=== PATIENT | female | born 1980 | race Caucasian/White ===

== ENCOUNTER 2021-02-02 10:58 | Inpatient (IN) | payer MEDICAID ==
[~2021-02-02] VITALS: Ht 165.1 cm; Wt 106.2 kg
[2021-02-02 12:11] LABS: Eosinophils # (auto) 0.1 10 ^3/uL (0-0.8); Lymphocytes # (auto) 1.4 10 ^3/uL (0.4-5.4); White Blood Cell 6.1 10^3/uL (4.4-10.8)
[2021-02-02 12:13] LABS: Basophils # (auto) 0 10 ^3/uL (0-0.2); Basophils % (auto) 0.6 % (0.0-2.0); Eosinophils % (auto) 1.5 % (0.0-7.0); Hematocrit 23.2 % (36.0-46.0); Hemoglobin 7.6 g/dL (12.2-16.2); Lymphocytes % (auto) 23.7 % (10.0-50.0); Mean Corpuscular Hemoglobin 30.8 pg (28.0-32.0); Mean Corpuscular Hgb Conc. 32.6 g/dL (32.0-36.0); Mean Corpuscular Volume 94.5 fL (80.0-100.0); Monocytes # (auto) 0.4 10 ^3/uL (0-1.3); Monocytes % (auto) 6.1 % (0.0-12.0); Neutrophils # (auto) 4.1 10 ^3/uL (1.6-8.6); Neutrophils % (auto) 68.1 % (37.0-80.0); Nucleated Red Blood Cells % 0.3 %; Red Blood Cells 2.45 10^6/uL (4.0-5.20); Red Cell Distribution Width 25.6 % (11.8-14.3)
[2021-02-02 12:22] LABS: Urine Bacteria FEW /hpf (None Seen); Urine Blood Negative /uL (Negative); Urine Hyaline Cast FEW /lpf (0 - 2); Urine Mucus FEW (None Seen); Urine Specific Gravity 1.015 (1.001-1.035); Urine WBC 5 /hpf (0 - 5)
[2021-02-02 12:25] LABS: Albumin 2.8 g/dL (3.4-5.0); Anion Gap 8 (5-15); Blood Urea Nitrogen 10 mg/dL (7-18); Carbon Dioxide 22 mmol/L (21-32); Chloride 113 mmol/L (98-107); Glucose 91 mg/dL (74-106); Magnesium 2.1 mg/dL (1.6-2.6); Potassium 3.2 mmol/L (3.5-5.1); Sodium 143 mmol/L (136-145)
[2021-02-02 12:31] LABS: INR 1.26 (0.9-1.15); Partial Thromboplastin Time 26.2 sec (23.0-31.2)
[2021-02-02 12:32] LABS: Alanine Aminotransferase 32 U/L (13-56); Alkaline Phosphatase 91 U/L (45-117); Aspartate Aminotransferase 67 U/L (15-37); GFR African American 176 mL/min; GFR Non-African American 145 mL/min; Total Protein 6.2 g/dL (6.4-8.2)
[2021-02-02] MEDS ORDERED: ONDANSETRON HCL 4 MG/2 ML VIAL IV PRN ×2 (13:00→21:45)
[2021-02-02] MEDS ORDERED: MORPHINE SULF INJ 2 MG/ML SYRINGE 1ML IV PRN ×3 (13:00→21:45)
[2021-02-02] MEDS ORDERED: NITROGLYCERIN 0.4 MG SL TAB SL PRN ×2 (13:00→21:45)
[2021-02-02] MEDS ORDERED: SODIUM CHLORIDE 0.9% 1,000 ML IV SCH (13:00)
[2021-02-02] MEDS ORDERED: ARIP1TAB7 PO (16:50)
[2021-02-02 16:55] VITALS: BP 135/76
[2021-02-02 16:57] VITALS: BP 117/63
[2021-02-02] MEDS ORDERED: POTASSIUM CHL 20 Meq TABLET PO ONE ×2 (19:30→22:00)
[2021-02-02 20:00] VITALS: BP 105/63
[2021-02-02] MEDS: SODIUM CHLORIDE 0.9% 1,000 ML IV SCH (21:45)
[2021-02-02] MEDS: PANTOPRAZOLE 40 MG/10 ML VIAL INJ IV SCH (21:50)
[2021-02-02] MEDS ORDERED: PANTOPRAZOLE 40 MG/10 ML VIAL INJ IV SCH (22:00)
[2021-02-03 05:00] VITALS: BP 107/63
[2021-02-03] MEDS: MORPHINE SULF INJ 2 MG/ML SYRINGE 1ML IV PRN ×2 (06:17→23:14)
[2021-02-03 08:59] VITALS: BP 130/66
[2021-02-03] MEDS: PANTOPRAZOLE 40 MG/10 ML VIAL INJ IV SCH (09:37)
[2021-02-03] MEDS: SODIUM CHLORIDE 0.9% 1,000 ML IV SCH (11:05)
[2021-02-03 12:43] VITALS: BP 122/75
[2021-02-03] MEDS: FUROSEMIDE 40 MG/4 ML VIAL IV SCH (15:40)
[2021-02-03] MEDS: SPIRONOLACTONE 25 MG TAB PO SCH (15:40)
[2021-02-03 17:01] VITALS: BP 122/70
[2021-02-03 18:59] LABS: Basophils # (auto) 0 10 ^3/uL (0-0.2); Basophils % (auto) 0.4 % (0.0-2.0); Eosinophils # (auto) 0.1 10 ^3/uL (0-0.8); Eosinophils % (auto) 1.8 % (0.0-7.0); Hematocrit 22.4 % (36.0-46.0); Hemoglobin 7.4 g/dL (12.2-16.2); Lymphocytes # (auto) 1.5 10 ^3/uL (0.4-5.4); Lymphocytes % (auto) 30.5 % (10.0-50.0); Mean Corpuscular Hemoglobin 30.7 pg (28.0-32.0); Mean Corpuscular Hgb Conc. 33.2 g/dL (32.0-36.0); Mean Corpuscular Volume 92.6 fL (80.0-100.0); Monocytes # (auto) 0.3 10 ^3/uL (0-1.3); Monocytes % (auto) 6.2 % (0.0-12.0); Neutrophils # (auto) 3.1 10 ^3/uL (1.6-8.6); Neutrophils % (auto) 61.1 % (37.0-80.0); Nucleated Red Blood Cells % 0.1 %; Red Blood Cells 2.42 10^6/uL (4.0-5.20)
[2021-02-03 19:00] LABS: Red Cell Distribution Width 22.8 % (11.8-14.3)
[2021-02-03 19:21] LABS: Albumin 2.8 g/dL (3.4-5.0); Calcium 8.2 mg/dL (8.5-10.1); Potassium 3.2 mmol/L (3.5-5.1)
[2021-02-03 19:27] LABS: Bilirubin, Total 4.5 mg/dL (0.2-1.0); Total Protein 6.2 g/dL (6.4-8.2)
[2021-02-03 20:00] VITALS: BP 122/75
[2021-02-03 22:00] VITALS: BP 107/55
[2021-02-04 05:57] LABS: Basophils # (auto) 0 10 ^3/uL (0-0.2); Basophils % (auto) 0.6 % (0.0-2.0); Eosinophils # (auto) 0.1 10 ^3/uL (0-0.8); Lymphocytes # (auto) 1.3 10 ^3/uL (0.4-5.4); Monocytes # (auto) 0.3 10 ^3/uL (0-1.3); Neutrophils # (auto) 2.5 10 ^3/uL (1.6-8.6)
[2021-02-04 05:59] LABS: Eosinophils % (auto) 2.7 % (0.0-7.0); Hematocrit 21.3 % (36.0-46.0); Hemoglobin 7.4 g/dL (12.2-16.2); Lymphocytes % (auto) 30.3 % (10.0-50.0); Mean Corpuscular Hemoglobin 32.4 pg (28.0-32.0); Mean Corpuscular Hgb Conc. 34.8 g/dL (32.0-36.0); Monocytes % (auto) 7.2 % (0.0-12.0); Neutrophils % (auto) 59.2 % (37.0-80.0); Nucleated Red Blood Cells % 0.2 %; Red Blood Cells 2.29 10^6/uL (4.0-5.20); White Blood Cell 4.2 10^3/uL (4.4-10.8)
[2021-02-04 06:10] LABS: Red Cell Distribution Width 21.6 % (11.8-14.3)
[2021-02-04 06:20] LABS: Potassium 3.6 mmol/L (3.5-5.1)
[2021-02-04 06:29] LABS: Albumin 2.7 g/dL (3.4-5.0); BUN/Creatinine Ratio 16.3; Bilirubin, Total 3.9 mg/dL (0.2-1.0); Calcium 7.8 mg/dL (8.5-10.1); Magnesium 1.8 mg/dL (1.6-2.6)
[2021-02-04] MEDS: FUROSEMIDE 40 MG/4 ML VIAL IV SCH (08:18)
[2021-02-04] MEDS: SPIRONOLACTONE 25 MG TAB PO SCH (08:19)
[2021-02-04 09:16] VITALS: BP 126/57
[2021-02-04 12:53] VITALS: BP 126/57
[2021-02-04 13:27] VITALS: BP 111/56
== END 2021-02-04 15:01 | disposition home or self-care (01) | DRG 280 ==
LOC: ER 10:58 → CENTRAL 12:57 → ER 15:55 → TELE-CENTR 18:09
PROVIDERS: ADMIT Internal Medicine; ATTEND Internal Medicine
DX: K70.30 Alcoholic cirrhosis of liver without ascites (principal); E44.0 Moderate protein-calorie malnutrition; E87.70 Fluid overload, unspecified; Z20.822 Contact with and (suspected) exposure to COVID-19; D63.8 Anemia in other chronic diseases classified elsewhere; F10.20 Alcohol dependence, uncomplicated; I10 Essential (primary) hypertension; Y90.9 Presence of alcohol in blood, level not specified; Z79.899 Other long term (current) drug therapy; Z71.41 Alcohol abuse counseling and surveillance of alcoholic; Z98.51 Tubal ligation status; Z88.0 Allergy status to penicillin; R74.01 Elevation of levels of liver transaminase levels
CPT/HCPCS: 36415; 71045; 74176; 80053; 81001; 83735; 84484; 85025; 85610; 85730; 86850; 86900; 86901; 87081; 87426; 93005; 96374; C9113; G0378

== ENCOUNTER 2022-08-09 12:16 | Emergency (ER) | payer MEDICAID ==
[~2022-08-09] VITALS: Ht 167.6 cm; Wt 95.0 kg
[~2022-08-09 12:16] MED LIST: ARIP1TAB7 PO
[2022-08-09 13:34] VITALS: BP 163/101
[2022-08-09] MEDS ORDERED: LIDOCAINE 1% HCL (LOCAL ANESTH.) INJ 20ML MDV IJ ONE (14:00)
[2022-08-09] MEDS ORDERED: TETANUS-DIPTH-ACEL PERTUSSIS 0.5ML SYR Tdap IM ONE (14:00)
[2022-08-09] MEDS ORDERED: CLIN300C8 PO (14:13)
[2022-08-09] MEDS ORDERED: NAPR500T31 PO (14:13)
[2022-08-09] MEDS ORDERED: cefTRIAXone SOD 1,000 MG VL IM ONE (14:15)
== END 2022-08-09 14:26 | disposition home or self-care (01) ==
LOC: ER 12:16
DX: S61.412A Laceration without foreign body of left hand, initial encounter (principal); I10 Essential (primary) hypertension; Z88.0 Allergy status to penicillin; W55.01XA Bitten by cat, initial encounter; Y93.89 Activity, other specified; Y92.89 Other specified places as the place of occurrence of the external cause; Y99.8 Other external cause status
CPT/HCPCS: 12002; 90471; 90715; 99283; J0696; J2001

== ENCOUNTER 2023-06-23 19:19 | Inpatient (IN) | payer MEDICAID ==
[~2023-06-23] VITALS: Ht 167.6 cm; Wt 75.5 kg
[~2023-06-23 19:19] MED LIST changes: +CLIN300C70 PO; +NAPR-746 PO
[2023-06-23 20:08] LABS: Basophils # (auto) 0 10 ^3/uL (0-0.2); Nucleated Red Blood Cells % 0.4 %; White Blood Cell 7.3 10^3/uL (4.4-10.8)
[2023-06-23 20:10] LABS: Basophils % (auto) 0.3 % (0.0-2.0); Eosinophils # (auto) 0.1 10 ^3/uL (0-0.8); Eosinophils % (auto) 0.8 % (0.0-7.0); Hematocrit 37.7 % (36.0-46.0); Hemoglobin 11.9 g/dL (12.2-16.2); Lymphocytes # (auto) 2.2 10 ^3/uL (0.4-5.4); Lymphocytes % (auto) 29.5 % (10.0-50.0); Mean Corpuscular Hemoglobin 24.9 pg (28.0-32.0); Mean Corpuscular Hgb Conc. 31.7 g/dL (32.0-36.0); Mean Corpuscular Volume 78.5 fL (80.0-100.0); Monocytes # (auto) 0.4 10 ^3/uL (0-1.3); Monocytes % (auto) 5.9 % (0.0-12.0); Neutrophils # (auto) 4.7 10 ^3/uL (1.6-8.6); Neutrophils % (auto) 63.5 % (37.0-80.0)
[2023-06-23 20:23] LABS: INR 1.42 (0.9-1.15); Partial Thromboplastin Time 29.8 SEC (24.5-34.5); Prothrombin Time 14.6 sec (9.3-11.8)
[2023-06-23 20:40] LABS: Alanine Aminotransferase 55 U/L (7-40); Albumin 4.1 g/dL (3.2-4.8); Alkaline Phosphatase 115 U/L (46-116); Anion Gap 12 (5-15); Aspartate Aminotransferase 110 U/L (13-40); Bilirubin, Total 5.1 mg/dL (0.2-1.0); Calcium 8.6 mg/dL (8.7-10.4); Carbon Dioxide 27 mmol/L (20-30); Chloride 95 mmol/L (98-107); Glucose 300 mg/dL (74-106); Sodium 134 mmol/L (136-145); Total Protein 6.8 g/dL (5.7-8.2)
[2023-06-23 20:53] LABS: Platelet Estimate Decreased
[2023-06-23 20:59] LABS: BUN/Creatinine Ratio 10.4 (10.0-20.0); Blood Urea Nitrogen < 5 mg/dL (9-23)
[2023-06-23 21:00] LABS: Potassium 2.4 mmol/L (3.5-5.1)
[2023-06-23] MEDS ORDERED: POTASSIUM CHL 20MEQ/100ML 100 ML IV ONE (21:30)
[2023-06-23] MEDS ORDERED: POTASSIUM CHL 20 Meq TABLET PO ONE (21:30)
[2023-06-23] MEDS ORDERED: SODIUM CHLORIDE 0.9% 1,000 ML IV SCH (21:45)
[2023-06-23] MEDS ORDERED: MORPHINE SULFATE INJ 2 MG/ml SYRG IV PRN (21:45)
[2023-06-23] MEDS ORDERED: NITROGLYCERIN 0.4 MG SL TAB SL PRN (21:45)
[2023-06-23 22:17] LABS: Urine Bacteria NONE SEEN /hpf (None Seen); Urine Blood TRACE /uL (Negative); Urine Clarity Clear (Clear); Urine Color Yellow (Yellow); Urine Mucus FEW (None Seen); Urine Protein, UAD Negative (Negative); Urine Specific Gravity 1.021 (1.001-1.035); Urine Urobilinogen Normal (Negative); Urine WBC 2 /hpf (0 - 5); Urine pH 7.5 (5.0-8.0)
[2023-06-24 00:15] VITALS: PULSE 100; RESP 15; O2SAT 96
[2023-06-24] MEDS: PANTOPRAZOLE 40 MG/10 ML VIAL INJ IV SCH ×3 (01:17→20:34)
[2023-06-24 05:42] LABS: Alanine Aminotransferase 46 U/L (7-40); Albumin 3.5 g/dL (3.2-4.8); Alkaline Phosphatase 98 U/L (46-116); Anion Gap 10 (5-15); Aspartate Aminotransferase 95 U/L (13-40); Bilirubin, Total 5.7 mg/dL (0.2-1.0); Calcium 8.1 mg/dL (8.7-10.4); Carbon Dioxide 28 mmol/L (20-30); Chloride 97 mmol/L (98-107); Glucose 217 mg/dL (74-106); Potassium 2.7 mmol/L (3.5-5.1); Sodium 135 mmol/L (136-145); Total Protein 5.9 g/dL (5.7-8.2)
[2023-06-24 05:46] LABS: Basophils # (auto) 0 10 ^3/uL (0-0.2); Basophils % (auto) 0.8 % (0.0-2.0); Eosinophils # (auto) 0 10 ^3/uL (0-0.8); Eosinophils % (auto) 0.7 % (0.0-7.0); Hematocrit 33.2 % (36.0-46.0); Hemoglobin 10.7 g/dL (12.2-16.2); Lymphocytes # (auto) 1.6 10 ^3/uL (0.4-5.4); Lymphocytes % (auto) 31.3 % (10.0-50.0); Mean Corpuscular Hgb Conc. 32.3 g/dL (32.0-36.0); Mean Corpuscular Volume 77.4 fL (80.0-100.0); Monocytes # (auto) 0.3 10 ^3/uL (0-1.3); Monocytes % (auto) 5.2 % (0.0-12.0); Neutrophils # (auto) 3.2 10 ^3/uL (1.6-8.6); Nucleated Red Blood Cells % 0.4 %; Red Blood Cells 4.29 10^6/uL (4.0-5.20); Red Cell Distribution Width 16.1 % (11.8-14.3); White Blood Cell 5.1 10^3/uL (4.4-10.8)
[2023-06-24 05:48] LABS: BUN/Creatinine Ratio 14.7 (10.0-20.0); Blood Urea Nitrogen < 5 mg/dL (9-23)
[2023-06-24 08:00] VITALS: PULSE 95; RESP 15; O2SAT 97
[2023-06-24 08:45] LABS: Anisocytosis Slight; Hypochromia Slight; Polychromasia Slight
[2023-06-24 08:46] LABS: Platelet Estimate Decreased; Target Cell FEW; Tear Drop Cells FEW
[2023-06-24] MEDS ORDERED: DEXTROSE (50%) 50ML SYRG IV PRN (11:00)
[2023-06-24] MEDS: SOD CHL 0.9%/ KCL 20MEQ 1,000 ML IV SCH (11:07)
[2023-06-24] MEDS: ONDANSETRON HCL 4 MG/2 ML VIAL IV PRN ×2 (11:14→20:11)
[2023-06-24] MEDS: MORPHINE SULFATE INJ 2 MG/ml SYRG IV PRN ×3 (11:15→22:45)
[2023-06-24 11:28] LABS: Amphetamine Screen, Urine Neg (NEGATIVE); Barbiturate Scree,Urine Neg (NEGATIVE); Benzodiazephine Screen, Urine Neg (NEGATIVE); Cocaine Screen, Urine Neg (NEGATIVE); Opiate Scree,Urine Pos (NEGATIVE)
[2023-06-24 11:29] LABS: Cannabinoid Screen, Urine Pos (NEGATIVE); Phencyclidine Screen, Urine Neg (NEGATIVE)
[2023-06-24] MEDS: ACCU-CHEK COMFORT CURVE STRIP VI SCH ×2 (12:22→18:03)
[2023-06-24] MEDS: InsuLIN REG 1unit/0.01ml Soln (100units/ml) SC SCH ×3 (12:23→22:43)
[2023-06-24 14:40] LABS: Hepatitis B Core Total AB Negative (Negative)
[2023-06-24 15:51] LABS: Hepatitis A Total Antibody Positive (Negative); Hepatitis B Surface Antibody Negative (Negative); Hepatitis B Surface Antigen Negative (Negative); Hepatitis C Antibody Negative (Negative)
[2023-06-24 19:30] VITALS: PULSE 91; RESP 18; O2SAT 98
[2023-06-24 20:00] VITALS: PULSE 81; RESP 18
[2023-06-24 22:00] VITALS: BP 114/70; PULSE 71; RESP 16; TEMP 98.2; O2SAT 95
[2023-06-25] MEDS: SOD CHL 0.9%/ KCL 20MEQ 1,000 ML IV SCH ×2 (00:20→13:40)
[2023-06-25 05:00] VITALS: BP 110/72; PULSE 85; RESP 16; TEMP 97.9; O2SAT 96
[2023-06-25] MEDS: MORPHINE SULFATE INJ 2 MG/ml SYRG IV PRN ×2 (05:07→09:18)
[2023-06-25] MEDS: ACCU-CHEK COMFORT CURVE STRIP VI SCH ×3 (05:15→12:37)
[2023-06-25] MEDS: InsuLIN REG 1unit/0.01ml Soln (100units/ml) SC SCH ×2 (05:20→12:38)
[2023-06-25 06:12] LABS: Basophils # (auto) 0 10 ^3/uL (0-0.2); Eosinophils # (auto) 0.1 10 ^3/uL (0-0.8); Monocytes # (auto) 0.3 10 ^3/uL (0-1.3); White Blood Cell 4.5 10^3/uL (4.4-10.8)
[2023-06-25 06:15] LABS: Basophils % (auto) 0.7 % (0.0-2.0); Eosinophils % (auto) 1.3 % (0.0-7.0); Hematocrit 30.8 % (36.0-46.0); Lymphocytes # (auto) 1.3 10 ^3/uL (0.4-5.4); Lymphocytes % (auto) 28.8 % (10.0-50.0); Mean Corpuscular Hemoglobin 25.5 pg (28.0-32.0); Mean Corpuscular Hgb Conc. 32.6 g/dL (32.0-36.0); Mean Corpuscular Volume 78.2 fL (80.0-100.0); Monocytes % (auto) 5.9 % (0.0-12.0); Neutrophils # (auto) 2.8 10 ^3/uL (1.6-8.6); Neutrophils % (auto) 63.3 % (37.0-80.0); Nucleated Red Blood Cells % 0.4 %; Red Blood Cells 3.94 10^6/uL (4.0-5.20); Red Cell Distribution Width 15.7 % (11.8-14.3)
[2023-06-25 06:20] LABS: INR 1.58 (0.9-1.15); Prothrombin Time 16.1 sec (9.3-11.8)
[2023-06-25 06:24] LABS: Alanine Aminotransferase 38 U/L (7-40); Albumin 3.2 g/dL (3.2-4.8); Alkaline Phosphatase 88 U/L (46-116); Anion Gap 9 (5-15); Aspartate Aminotransferase 85 U/L (13-40); BUN/Creatinine Ratio 16.2 (10.0-20.0); Bilirubin, Total 5.8 mg/dL (0.2-1.0); Blood Urea Nitrogen 6 mg/dL (9-23); Calcium 8.3 mg/dL (8.5-10.1); Carbon Dioxide 27 mmol/L (20-30); Chloride 102 mmol/L (98-107); Glucose 155 mg/dL (74-106); Potassium 3.1 mmol/L (3.5-5.1); Sodium 138 mmol/L (136-145); Total Protein 5.4 g/dL (5.7-8.2)
[2023-06-25 08:00] VITALS: PULSE 91; RESP 18
[2023-06-25] MEDS: PANTOPRAZOLE 40 MG/10 ML VIAL INJ IV SCH (09:12)
[2023-06-25 09:18] VITALS: BP 100/65; PULSE 89; RESP 18; TEMP 97.6; O2SAT 96
[2023-06-25 12:11] VITALS: BP 112/65; PULSE 94; RESP 17; TEMP 98.9; O2SAT 96
[2023-06-25] MEDS ORDERED: PANT40TA2 PO (12:14)
[2023-06-25 16:45] VITALS: BP 115/74; PULSE 97; RESP 16; TEMP 98.7; O2SAT 96
== END 2023-06-25 18:00 | disposition home or self-care (01) | DRG 253 ==
LOC: ER 19:19 → TELE 21:42 → TELE-CENTR 06-24 18:56
PROVIDERS: ADMIT Nurse Practitioner; ATTEND Nurse Practitioner Acute Care
DX: K92.2 Gastrointestinal hemorrhage, unspecified (principal); D68.9 Coagulation defect, unspecified; K70.30 Alcoholic cirrhosis of liver without ascites; D64.9 Anemia, unspecified; E66.9 Obesity, unspecified; E87.6 Hypokalemia; F10.20 Alcohol dependence, uncomplicated; I10 Essential (primary) hypertension; K80.20 Calculus of gallbladder without cholecystitis without obstruction; Z88.0 Allergy status to penicillin; Z68.26 Body mass index [BMI] 26.0-26.9, adult; Z80.9 Family history of malignant neoplasm, unspecified; Z72.0 Tobacco use
CPT/HCPCS: 36415; 74176; 76705; 80053; 80307; 81001; 82962; 83036; 85025; 85610; 85730; 86704; 86706; 86708; 86803; 86850; 86900; 86901; 87340; 96365; 96366; 96375; C9113; G0378; J1815; J2405; J3480

== ENCOUNTER 2023-07-07 06:26 | Inpatient (IN) | payer MEDICAID ==
[~2023-07-07] VITALS: Ht 167.6 cm; Wt 79.2 kg
[~2023-07-07 06:26] MED LIST changes: +PANT40TA2 PO
[2023-07-07] MEDS ORDERED: SODIUM CHLORIDE 0.9% 1,000 ML IV ONE (07:00)
[2023-07-07 07:15] LABS: Urine Bacteria FEW /hpf (None Seen); Urine Blood Negative /uL (Negative); Urine Clarity Clear (Clear); Urine Color Yellow (Yellow); Urine Protein, UAD Negative (Negative); Urine Specific Gravity 1.007 (1.001-1.035); Urine Urobilinogen Normal (Negative); Urine WBC 1 /hpf (0 - 5); Urine pH 7.5 (5.0-8.0)
[2023-07-07 07:21] LABS: Amphetamine Screen, Urine Neg (NEGATIVE); Barbiturate Scree,Urine Neg (NEGATIVE); Benzodiazephine Screen, Urine Neg (NEGATIVE); Cocaine Screen, Urine Neg (NEGATIVE)
[2023-07-07 07:22] LABS: Cannabinoid Screen, Urine Neg (NEGATIVE); Opiate Scree,Urine Neg (NEGATIVE); Phencyclidine Screen, Urine Neg (NEGATIVE)
[2023-07-07 07:25] LABS: Alanine Aminotransferase 41 U/L (7-40); Albumin 3.6 g/dL (3.2-4.8); Alkaline Phosphatase 104 U/L (46-116); Anion Gap 12 (5-15); Aspartate Aminotransferase 110 U/L (13-40); Blood Alcohol < 3.0 mg/dL (<10); Calcium 8.6 mg/dL (8.5-10.1); Carbon Dioxide 28 mmol/L (20-30); Chloride 98 mmol/L (98-107); Glucose 163 mg/dL (74-106); Potassium 2.8 mmol/L (3.5-5.1); Sodium 138 mmol/L (136-145)
[2023-07-07 07:26] LABS: Bilirubin, Total 4.2 mg/dL (0.2-1.0); Total Protein 6.1 g/dL (5.7-8.2)
[2023-07-07 07:28] LABS: BUN/Creatinine Ratio 11.9 (10.0-20.0); Blood Urea Nitrogen < 5 mg/dL (9-23)
[2023-07-07 07:32] LABS: Basophils # (auto) 0 10 ^3/uL (0-0.2); Basophils % (auto) 0.5 % (0.0-2.0); Eosinophils # (auto) 0 10 ^3/uL (0-0.8); Lymphocytes # (auto) 1.5 10 ^3/uL (0.4-5.4); Monocytes # (auto) 0.3 10 ^3/uL (0-1.3); Neutrophils # (auto) 3.2 10 ^3/uL (1.6-8.6); Red Cell Distribution Width 17.2 % (11.8-14.3)
[2023-07-07 07:34] LABS: Eosinophils % (auto) 0.6 % (0.0-7.0); Hematocrit 33.6 % (36.0-46.0); Hemoglobin 10.8 g/dL (12.2-16.2); Lymphocytes % (auto) 30.2 % (10.0-50.0); Mean Corpuscular Hemoglobin 25.3 pg (28.0-32.0); Mean Corpuscular Hgb Conc. 32.3 g/dL (32.0-36.0); Mean Corpuscular Volume 78.2 fL (80.0-100.0); Monocytes % (auto) 5.7 % (0.0-12.0); Nucleated Red Blood Cells % 0.5 %
[2023-07-07 07:58] LABS: Salicylate < 3.0 mg/dL (2.8-20.0)
[2023-07-07 08:14] VITALS: PULSE 121; RESP 18; O2SAT 99
[2023-07-07 08:17] LABS: Platelet Estimate Decreased
[2023-07-07 08:18] LABS: Anisocytosis Moderate
[2023-07-07 08:19] LABS: Target Cell MODERATE
[2023-07-07] MEDS ORDERED: SODIUM CHLORIDE 0.9% 1,000 ML IVB ONE (10:00)
[2023-07-07] MEDS ORDERED: POTASSIUM EFFERVESENT TAB 25 MEQ PO ONE (10:15)
[2023-07-07 10:25] LABS: Magnesium 1.2 mg/dL (1.6-2.6)
[2023-07-07 10:30] LABS: Thyroid Stimulating Hormone 6.69 uIU/mL (0.55-4.78)
[2023-07-07 10:37] LABS: INR 1.52 (0.9-1.15); Partial Thromboplastin Time 30.3 SEC (24.5-34.5); Prothrombin Time 15.5 sec (9.3-11.8)
[2023-07-07] MEDS ORDERED: IOHEXOL 300 MG/ML 100ML BOTTLE IJ ONE (10:50)
[2023-07-07] MEDS ORDERED: NITROGLYCERIN 0.4 MG SL TAB SL PRN (16:30)
[2023-07-07] MEDS ORDERED: LORazepam 2MG/ML-1ML VIAL IV PRN (16:30)
[2023-07-07] MEDS ORDERED: THIAMINE HCL 100 MG TAB PO ONE (16:30)
[2023-07-07] MEDS ORDERED: ACETAMINOPHEN 500 MG TAB PO PRN (16:30)
[2023-07-07] MEDS ORDERED: HYDROcodone-ACET 5/325MG TAB PO PRN (16:30)
[2023-07-07] MEDS ORDERED: ONDANSETRON HCL 4 MG/2 ML VIAL IV PRN (16:30)
[2023-07-07] MEDS ORDERED: MORPHINE SULFATE INJ 2 MG/ml SYRG IV PRN (16:30)
[2023-07-07 19:37] VITALS: PULSE 93; RESP 13; TEMP 98; O2SAT 96
[2023-07-07] MEDS ORDERED: MAGNESIUM SULFATE 1GM/100ML 200 ML IV ONE (21:47)
[2023-07-07] MEDS: MAGNESIUM SULFATE 1GM/100ML 100 ML IV SCH ×2 (21:47→22:54)
[2023-07-08 04:59] LABS: Basophils # (auto) 0 10 ^3/uL (0-0.2); Eosinophils # (auto) 0 10 ^3/uL (0-0.8); Hemoglobin 9.6 g/dL (12.2-16.2); Mean Corpuscular Volume 79.4 fL (80.0-100.0); Monocytes # (auto) 0.3 10 ^3/uL (0-1.3); White Blood Cell 5.2 10^3/uL (4.4-10.8)
[2023-07-08 05:02] LABS: Basophils % (auto) 0.5 % (0.0-2.0); Eosinophils % (auto) 0.3 % (0.0-7.0); Hematocrit 29.9 % (36.0-46.0); Lymphocytes % (auto) 19.8 % (10.0-50.0); Mean Corpuscular Hemoglobin 25.4 pg (28.0-32.0); Monocytes % (auto) 5.2 % (0.0-12.0); Neutrophils # (auto) 3.9 10 ^3/uL (1.6-8.6); Neutrophils % (auto) 74.2 % (37.0-80.0); Nucleated Red Blood Cells % 0.6 %; Red Blood Cells 3.77 10^6/uL (4.0-5.20); Red Cell Distribution Width 16.5 % (11.8-14.3)
[2023-07-08 06:00] VITALS: BP 149/82
[2023-07-08 06:38] LABS: Anisocytosis Slight; Platelet Estimate Decreased
[2023-07-08 06:39] LABS: Target Cell MODERATE; Tear Drop Cells FEW
[2023-07-08 07:32] VITALS: PULSE 90; RESP 16; O2SAT 96
[2023-07-08 09:33] LABS: Chloride 100 mmol/L (98-107); Potassium 2.9 mmol/L (3.5-5.1); Sodium 136 mmol/L (136-145)
[2023-07-08 09:34] LABS: Anion Gap 11 (5-15); Carbon Dioxide 25 mmol/L (20-30)
[2023-07-08 09:35] LABS: Calcium 8.2 mg/dL (8.5-10.1)
[2023-07-08 09:39] LABS: Glucose 157 mg/dL (74-106)
[2023-07-08 09:41] LABS: BUN/Creatinine Ratio 13.2 (10.0-20.0); Blood Urea Nitrogen < 5 mg/dL (9-23)
[2023-07-08] MEDS ORDERED: MULTIPLE VITAMIN TAB PO SCH (10:00)
[2023-07-08] MEDS ORDERED: PANTOPRAZOLE 40 MG TAB PO SCH (10:00)
[2023-07-08] MEDS ORDERED: THIAMINE HCL 100 MG TAB PO SCH (10:00)
[2023-07-08] MEDS ORDERED: POTASSIUM EFFERVESENT TAB 25 MEQ PO ONE (13:15)
[2023-07-08] MEDS ORDERED: POTASSIUM CHLORIDE 20 MEQ, LIDOCAINE 1% (LOCAL ANESTH.) 2 ML in SODIUM CHL 0.9% 100 ML IV ONE (13:15)
[2023-07-08] MEDS ORDERED: MAGNESIUM OXIDE 400 MG TAB PO ONE (13:15)
[2023-07-08] MEDS ORDERED: ONDANSETRON ODT 4 MG TAB PO ONE (14:00)
[2023-07-08] MEDS ORDERED: LORazepam 0.5 MG TAB PO ONE (14:00)
== END 2023-07-08 15:00 | disposition left against medical advice (07) | DRG 817 ==
LOC: ER 06:26 → TELE 16:27
PROVIDERS: ADMIT Nurse Practitioner Acute Care; ATTEND Nurse Practitioner Acute Care
DX: T42.6X2A Poisoning by other antiepileptic and sedative-hypnotic drugs, intentional self-harm, initial encounter (principal); D63.8 Anemia in other chronic diseases classified elsewhere; K76.6 Portal hypertension; F17.210 Nicotine dependence, cigarettes, uncomplicated; Z53.29 Procedure and treatment not carried out because of patient's decision for other reasons; F31.9 Bipolar disorder, unspecified; E66.9 Obesity, unspecified; E83.42 Hypomagnesemia; E87.6 Hypokalemia; F41.9 Anxiety disorder, unspecified; F10.20 Alcohol dependence, uncomplicated; I10 Essential (primary) hypertension; R79.1 Abnormal coagulation profile; Y92.89 Other specified places as the place of occurrence of the external cause; Z68.28 Body mass index [BMI] 28.0-28.9, adult; Z80.9 Family history of malignant neoplasm, unspecified; Z82.49 Family history of ischemic heart disease and other diseases of the circulatory system; Z88.0 Allergy status to penicillin
CPT/HCPCS: 36415; 71046; 74177; 80048; 80053; 80307; 80320; 80329; 81001; 82140; 83690; 83735; 84443; 84702; 85025; 85610; 85730; 93005; 99291; G0378; Q0162

== ENCOUNTER 2023-10-06 03:26 | Inpatient (IN) | payer MEDICAID ==
[~2023-10-06] VITALS: Ht 175.3 cm; Wt 100.8 kg
[2023-10-06] VITALS (26 sets, daily range): BP systolic 62–119; BP diastolic 19–65; PULSE 60–87; RESP 18–28; TEMP 90.1–92.7; O2SAT 91–100
[~2023-10-06 03:26] MED LIST changes: -ARIP1TAB7 PO; +ARIP20TA4 PO; +CLIN1CAP70 PO; -CLIN300C70 PO
[2023-10-06] MEDS: SODIUM CHLORIDE 0.9% 500 ML IV ONE (03:50)
[2023-10-06 04:28] LABS: Hematocrit 27.3 % (36.0-46.0); Hemoglobin 8.6 g/dL (12.2-16.2); Mean Corpuscular Hemoglobin 29.1 pg (28.0-32.0); Mean Corpuscular Hgb Conc. 31.6 g/dL (32.0-36.0); Mean Corpuscular Volume 92.1 fL (80.0-100.0); Red Blood Cells 2.97 10^6/uL (4.0-5.20)
[2023-10-06 04:35] LABS: Alkaline Phosphatase 124 U/L (46-116); Bilirubin, Total 34.9 mg/dL (0.2-1.0); Blood Alcohol < 3.0 mg/dL (<10); Calcium 7.5 mg/dL (8.5-10.1); Chloride 91 mmol/L (98-107); Potassium 4.4 mmol/L (3.5-5.1); Sodium 122 mmol/L (136-145)
[2023-10-06 04:39] LABS: Alanine Aminotransferase 67 U/L (7-40); Albumin 2.1 g/dL (3.2-4.8); Anion Gap 14 (5-15); Aspartate Aminotransferase 324 U/L (13-40); Blood Urea Nitrogen 33 mg/dL (9-23); Carbon Dioxide 17 mmol/L (20-30); Glucose 59 mg/dL (74-106); Total Protein 5.1 g/dL (5.7-8.2)
[2023-10-06 04:47] LABS: Salicylate < 3.0 mg/dL (2.8-20.0)
[2023-10-06 04:48] LABS: Prothrombin Time 52.3 sec (9.3-11.8)
[2023-10-06 04:54] LABS: INR 5.57 (0.9-1.15); Partial Thromboplastin Time 120.1 SEC (24.5-34.5)
[2023-10-06 04:55] LABS: Red Cell Distribution Width 27.6 % (11.8-14.3); White Blood Cell 30.9 10^3/uL (4.4-10.8)
[2023-10-06 04:56] LABS: Basophils % (manual) 0 (0.0-2.0); Blast Cells 0; Metamyelocytes % 0; Promyelocytes % 0; Reactive Lymphocytes 0
[2023-10-06] MEDS: DEXTROSE (50%) 50ML SYRG IV ONE (05:20)
[2023-10-06] MEDS: DEXTROSE 50% SYRINGE 50 ML IV ONE ×2 (05:20→15:19)
[2023-10-06 05:33] LABS: Anisocytosis Moderate; Band Neutrophils % (manual) 15; Eosinophils % (manual) 1 (0-7); Lymphocytes % (manual) 4 (10.0-50.0); Monocytes % (manual) 8 (0-12); Myelocytes % 3; Platelet Estimate Decreased
[2023-10-06 05:34] LABS: Target Cell MANY; Tear Drop Cells FEW
[2023-10-06] MEDS: PIPERACILLIN-TAZO 4.5GM 100 ML IV ONE (06:22)
[2023-10-06] MEDS ORDERED: MORPHINE SULFATE INJ 2 MG/ml SYRG IV PRN ×2 (06:45→07:00)
[2023-10-06] MEDS ORDERED: NITROGLYCERIN 0.4 MG SL TAB SL PRN ×2 (06:45→07:00)
[2023-10-06] MEDS ORDERED: ONDANSETRON HCL 4 MG/2 ML VIAL IV PRN ×2 (06:45→07:00)
[2023-10-06 07:59] LABS: Lactic Acid w/Reflex 5.6 mmol/L (0.4-2.0)
[2023-10-06] MEDS: LACTULOSE 10g/15ml SOLN 473ML PR ONE (08:30)
[2023-10-06] MEDS: ALBUMIN 5% 250 ML IV ONE (09:12)
[2023-10-06] MEDS ORDERED: LORazepam 2MG/ML-1ML VIAL IV PRN (10:30)
[2023-10-06] MEDS: MIDAZOLAM HCL 5 MG/ML-1ML VIAL ONE (11:00)
[2023-10-06] MEDS: MIDAZOLAM HCL 2MG/2ML 2ml VIAL (1mg/ml) IV ONE (11:00)
[2023-10-06] MEDS: ROCURONIUM 10MG/ML 10ML VIAL IV ONE ×3 (11:00→11:18)
[2023-10-06] MEDS: fentaNYL Drip 2500mCg/250mlNS 250 ML IV SCH (11:15)
[2023-10-06] MEDS: VASOPRESSIN 20 UNITS in SODIUM CHL 0.9% 99 ML IV SCH (11:15)
[2023-10-06] MEDS: MIDAZOLAM HCL 5 MG/ML-1ML VIAL IV ONE (11:16)
[2023-10-06] MEDS: PANTOPRAZOLE 80 MG in SODIUM CHL 0.9% 100 ML IV ONE (11:45)
[2023-10-06] MEDS: OCTREOTIDE ACETATE 100 MCG in SODIUM CHL 0.9% 50 ML IV ONE (11:45)
[2023-10-06] MEDS: NOREPINEPHRINE 8 MG/250ML KIT 250 ML IV SCH (12:00)
[2023-10-06] MEDS: LACTULOSE 10g/15ml SOLN 473ML PR SCH (12:00)
[2023-10-06] MEDS ORDERED: LACTULOSE 10g/15ml SOLN 473ML PR SCH (12:00)
[2023-10-06] MEDS: PHYTONADIONE (VIT K)10 MG/ML 1ML VIAL SUBCUT ONE (12:19)
[2023-10-06] MEDS: OCTREOTIDE ACETATE 500 MCG in SODIUM CHL 0.9% 99 ML IV SCH (12:21)
[2023-10-06] MEDS: PANTOPRAZOLE 40mg/50ML NS AE 50 ML IV SCH (12:22)
[2023-10-06 12:45] LABS: Base Excess -18.8 mmol/L (-2.0-2.0)
[2023-10-06] MEDS ORDERED: PHYTONADIONE (VIT K)10 MG/ML 1ML VIAL SUBCUT ONE (13:00)
[2023-10-06] MEDS ORDERED: PIPERACILLIN-TAZOB 3.375GM 100 ML IV SCH ×2 (14:00)
[2023-10-06 14:35] LABS: Chloride 96 mmol/L (98-107); Potassium 4.1 mmol/L (3.5-5.1); Sodium 126 mmol/L (136-145)
[2023-10-06 14:37] LABS: Calcium 6.9 mg/dL (8.5-10.1)
[2023-10-06 15:06] LABS: Base Excess -18.5 mmol/L (-2.0-2.0)
[2023-10-06 15:07] LABS: Anion Gap 15 (5-15); BUN/Creatinine Ratio 13.1 (10.0-20.0); Blood Urea Nitrogen 38 mg/dL (9-23); Carbon Dioxide 15 mmol/L (20-30)
[2023-10-06 15:13] LABS: Glucose 29 mg/dL (74-106)
[2023-10-06] MEDS: MIDAZOLAM DRIP 50 mg/50mL 50 ML IV SCH (16:00)
[2023-10-06] MEDS: SODIUM BICARB 8.4% 50Meq/50ml SYR Vial IV ONE ×2 (16:15→19:52)
[2023-10-06] MEDS: SODIUM BICARB 50mEq/50ml Vial 150 ML in D5W 5% 1,000 ML IV SCH ×2 (16:30→17:45)
[2023-10-06] MEDS: ALBUMIN 25% 100 ML IV SCH (17:30)
[2023-10-06] MEDS: metroNIDAZOLE 500MG/100ML 100 ML IV SCH (18:15)
[2023-10-06 18:30] LABS: Hemoglobin 7.7 g/dL (12.2-16.2)
[2023-10-06 18:32] LABS: Hematocrit 25.1 % (36.0-46.0); Mean Corpuscular Hgb Conc. 30.8 g/dL (32.0-36.0); Mean Corpuscular Volume 94.1 fL (80.0-100.0); Red Blood Cells 2.67 10^6/uL (4.0-5.20)
[2023-10-06 18:33] LABS: Red Cell Distribution Width 25.5 % (11.8-14.3)
[2023-10-06 18:35] LABS: Basophils % (manual) 0 (0.0-2.0); Blast Cells 0; Eosinophils % (manual) 0 (0-7); Metamyelocytes % 0; Myelocytes % 0; Promyelocytes % 0; Reactive Lymphocytes 0
[2023-10-06 18:37] LABS: Alkaline Phosphatase 135 U/L (46-116); Calcium 6.9 mg/dL (8.7-10.4); Chloride 96 mmol/L (98-107); Potassium 3.8 mmol/L (3.5-5.1); Sodium 126 mmol/L (136-145)
[2023-10-06 18:38] LABS: Bilirubin, Total 33.1 mg/dL (0.2-1.0)
[2023-10-06 18:43] LABS: Alanine Aminotransferase 77 U/L (7-40); Albumin 2.5 g/dL (3.2-4.8); Anion Gap 15 (5-15); Aspartate Aminotransferase 413 U/L (13-40); BUN/Creatinine Ratio 13.1 (10.0-20.0); Blood Urea Nitrogen 36 mg/dL (9-23); Carbon Dioxide 15 mmol/L (20-30); Glucose 93 mg/dL (74-106); Total Protein 5.2 g/dL (5.7-8.2)
[2023-10-06 21:14] LABS: Band Neutrophils % (manual) 36; Lymphocytes % (manual) 5 (10.0-50.0); Monocytes % (manual) 4 (0-12)
[2023-10-06 21:15] LABS: Anisocytosis Moderate; Platelet Estimate Decreased
[2023-10-06 21:16] LABS: Polychromasia Slight
[2023-10-06 21:17] LABS: Target Cell MODERATE; Tear Drop Cells MANY
[2023-10-06 21:23] LABS: Base Excess -19.2 mmol/L (-2.0-2.0)
[2023-10-06] MEDS ORDERED: PANTOPRAZOLE 40 MG/10 ML VIAL INJ IV SCH (22:00)
[2023-10-06 23:11] LABS: Base Excess -18.1 mmol/L (-2.0-2.0)
[2023-10-07] VITALS (118 sets, daily range): BP systolic 86–136; BP diastolic 21–83; PULSE 77–98; RESP 20–30; TEMP 95.9–100; O2SAT 59–100
[2023-10-07] MEDS: ACCU-CHEK COMFORT CURVE STRIP VI SCH (00:03)
[2023-10-07] MEDS: SODIUM BICARB 8.4% 50Meq/50ml SYR Vial IV ONE ×5 (00:06→09:28)
[2023-10-07] MEDS: DEXTROSE (50%) 50ML SYRG IV PRN (03:17)
[2023-10-07 03:47] LABS: Urine Bacteria MOD /hpf (None Seen); Urine Blood 3+ /uL (Negative); Urine Clarity HAZY (Clear); Urine Color Brown (Yellow); Urine Mucus FEW (None Seen); Urine Protein, UAD 2+ (Negative); Urine Specific Gravity 1.014 (1.001-1.035); Urine Urobilinogen Normal (Negative); Urine WBC 4 /hpf (0 - 5)
[2023-10-07 03:57] LABS: Creatinine, Urine 83.03 mg/dL (30.0-125.0)
[2023-10-07 04:10] LABS: Basophils # (auto) 0.1 10 ^3/uL (0-0.2); Basophils % (auto) 0.3 % (0.0-2.0); Eosinophils # (auto) 0.1 10 ^3/uL (0-0.8); Eosinophils % (auto) 0.2 % (0.0-7.0); Hematocrit 20.3 % (36.0-46.0); Lymphocytes # (auto) 2.1 10 ^3/uL (0.4-5.4); Lymphocytes % (auto) 8.1 % (10.0-50.0); Mean Corpuscular Hemoglobin 29.1 pg (28.0-32.0); Mean Corpuscular Hgb Conc. 30.3 g/dL (32.0-36.0); Mean Corpuscular Volume 96.3 fL (80.0-100.0); Monocytes # (auto) 1.2 10 ^3/uL (0-1.3); Monocytes % (auto) 4.4 % (0.0-12.0); Neutrophils # (auto) 23.1 10 ^3/uL (1.6-8.6); Nucleated Red Blood Cells % 29.9 %; Red Blood Cells 2.11 10^6/uL (4.0-5.20); White Blood Cell 26.5 10^3/uL (4.4-10.8)
[2023-10-07 04:13] LABS: Red Cell Distribution Width 25.6 % (11.8-14.3)
[2023-10-07 04:28] LABS: Alkaline Phosphatase 90 U/L (46-116); Calcium 6.5 mg/dL (8.7-10.4); Chloride 93 mmol/L (98-107); Potassium 4.1 mmol/L (3.5-5.1); Sodium 130 mmol/L (136-145)
[2023-10-07 04:29] LABS: Bilirubin, Total 31.6 mg/dL (0.2-1.0)
[2023-10-07 04:51] LABS: Alanine Aminotransferase 115 U/L (7-40); Albumin 2.3 g/dL (3.2-4.8); Anion Gap 23 (5-15); Aspartate Aminotransferase 848 U/L (13-40); BUN/Creatinine Ratio 12.9 (10.0-20.0); Blood Urea Nitrogen 39 mg/dL (9-23); Carbon Dioxide 14 mmol/L (20-30); Glucose 50 mg/dL (74-106); Total Protein 4.5 g/dL (5.7-8.2)
[2023-10-07 05:54] LABS: Anisocytosis Moderate; Polychromasia Slight
[2023-10-07 05:55] LABS: Target Cell MODERATE; Tear Drop Cells MANY
[2023-10-07 05:58] LABS: Platelet Estimate Decreased
[2023-10-07 07:22] LABS: Prothrombin Time 54.1 sec (9.3-11.8)
[2023-10-07 07:23] LABS: INR 5.8 (0.9-1.15)
[2023-10-07 08:56] LABS: Base Excess -18.8 mmol/L (-2.0-2.0)
[2023-10-07] MEDS: levoFLOXacin 250MG 50 ML IV SCH (09:39)
[2023-10-07] MEDS ORDERED: MEROPENEM 500MG IVPB 50 ML IV SCH ×2 (10:00→11:00)
[2023-10-07] MEDS ORDERED: ERTAPENEM SOD INJ 0.5 GM in SODIUM CHL 0.9% 50 ML IV SCH (10:00)
[2023-10-07] MEDS: rifAXIMin 550 MG TAB PO SCH (10:29)
[2023-10-07] MEDS: LACTULOSE 20Gm/30ML SOLN NG SCH (10:30)
[2023-10-07] MEDS: DEXTROSE 10% 1,000 ML IV SCH (10:31)
[2023-10-07] MEDS: phytonadione 10 MG in SODIUM CHL 0.9% 50 ML IV ONE (11:48)
[2023-10-07 14:10] LABS: Hematocrit 17.8 % (36.0-46.0); Mean Corpuscular Hemoglobin 29.1 pg (28.0-32.0); Mean Corpuscular Hgb Conc. 30.5 g/dL (32.0-36.0); Mean Corpuscular Volume 95.6 fL (80.0-100.0); Red Blood Cells 1.87 10^6/uL (4.0-5.20)
[2023-10-07] MEDS: NOREPINEPHRINE BITARTRATE 32 MG in SODIUM CHL 0.9% 218 ML IV SCH (14:18)
[2023-10-07 14:25] LABS: Red Cell Distribution Width 22.5 % (11.8-14.3)
[2023-10-07 14:26] LABS: Albumin 2.1 g/dL (3.2-4.8); Alkaline Phosphatase 96 U/L (46-116); Anion Gap 28 (5-15); Carbon Dioxide 14 mmol/L (20-30); Chloride 91 mmol/L (98-107); Glucose 120 mg/dL (74-106); Hemoglobin 5.4 g/dL (12.2-16.2); Potassium 4.9 mmol/L (3.5-5.1); Sodium 133 mmol/L (136-145); White Blood Cell 33.5 10^3/uL (4.4-10.8)
[2023-10-07 14:28] LABS: Basophils % (manual) 0 (0.0-2.0); Eosinophils % (manual) 0 (0-7); Metamyelocytes % 0; Myelocytes % 0; Promyelocytes % 0; Reactive Lymphocytes 0
[2023-10-07 14:49] LABS: Alanine Aminotransferase 258 U/L (7-40); Aspartate Aminotransferase 2530 U/L (13-40); Blood Urea Nitrogen 41 mg/dL (9-23); Total Protein 3.6 g/dL (5.7-8.2)
[2023-10-07 14:56] LABS: Calcium 5.8 mg/dL (8.5-10.1)
[2023-10-07 15:04] LABS: Prothrombin Time 44.1 sec (9.3-11.8)
[2023-10-07 15:05] LABS: INR 4.6 (0.9-1.15)
[2023-10-07 15:06] LABS: Partial Thromboplastin Time > 139.0 SEC (24.5-34.5)
[2023-10-07] MEDS: PHENYLEPHRINE INJ 80 MG in SODIUM CHL 0.9% 242 ML IV SCH (15:15)
[2023-10-07 16:29] LABS: Band Neutrophils % (manual) 31; Blast Cells 2; Lymphocytes % (manual) 20 (10.0-50.0); Monocytes % (manual) 14 (0-12)
[2023-10-07 16:30] LABS: Anisocytosis Moderate; Hypochromia Moderate; Platelet Estimate Decreased; Polychromasia Slight; Target Cell FEW; Tear Drop Cells FEW
[2023-10-07] MEDS: MEROPENEM 500MG IVPB 50 ML IV SCH (17:00)
[2023-10-07] MEDS: CALCIUM GLUC 1,000mg/50ml-NS 50 ML IV SCH (18:05)
[2023-10-07] MEDS: CALCIUM GLUC 1,000mg/50ml-NS 50 ML IV ONE (18:47)
[2023-10-07 23:34] LABS: Hematocrit 21.5 % (36.0-46.0)
[2023-10-07 23:42] LABS: Hemoglobin 6.6 g/dL (12.2-16.2)
[2023-10-08] VITALS (133 sets, daily range): BP systolic 45–152; BP diastolic 11–102; PULSE 63–114; RESP 15–32; TEMP 96.8–98.4; O2SAT 28–100
[2023-10-08] MEDS: PHENYLEPHRINE HCL 10 MG/ML VL ONE (04:12)
[2023-10-08 07:13] LABS: Hemoglobin 7.4 g/dL (12.2-16.2); Mean Corpuscular Hemoglobin 29.3 pg (28.0-32.0); Red Cell Distribution Width 18.6 % (11.8-14.3)
[2023-10-08 07:15] LABS: Hematocrit 24.3 % (36.0-46.0); Mean Corpuscular Hgb Conc. 30.3 g/dL (32.0-36.0); Mean Corpuscular Volume 96.7 fL (80.0-100.0); Red Blood Cells 2.51 10^6/uL (4.0-5.20)
[2023-10-08] MEDS: EPINEPHrine HCL 250 ML IV SCH (07:15)
[2023-10-08] MEDS: EPINEPHrine HCL 250 ML IV ONE (07:15)
[2023-10-08 07:25] LABS: Albumin 1.7 g/dL (3.2-4.8); Alkaline Phosphatase 203 U/L (46-116); Anion Gap 30 (5-15); Carbon Dioxide 10 mmol/L (20-30); Chloride 91 mmol/L (98-107); Glucose 112 mg/dL (74-106); Sodium 131 mmol/L (136-145)
[2023-10-08 07:26] LABS: Bilirubin, Total 21.2 mg/dL (0.2-1.0)
[2023-10-08 07:28] LABS: Basophils % (manual) 0 (0.0-2.0); Blast Cells 0; Eosinophils % (manual) 0 (0-7); Metamyelocytes % 0; Myelocytes % 0; Promyelocytes % 0; Reactive Lymphocytes 0; White Blood Cell 35.5 10^3/uL (4.4-10.8)
[2023-10-08 07:34] LABS: Calcium 5.5 mg/dL (8.7-10.4); Potassium 5.6 mmol/L (3.5-5.1)
[2023-10-08] MEDS: DOPamine 1600MCG/ML D5W 250 ML IV ONE (07:42)
[2023-10-08 07:49] LABS: Alanine Aminotransferase 370 U/L (7-40); Aspartate Aminotransferase 3974 U/L (13-40); BUN/Creatinine Ratio 9.9 (10.0-20.0); Blood Urea Nitrogen 36 mg/dL (9-23); Total Protein 3.2 g/dL (5.7-8.2)
[2023-10-08 07:54] LABS: INR 3.8 (0.9-1.15); Prothrombin Time 36.5 sec (9.3-11.8)
[2023-10-08 07:57] LABS: Partial Thromboplastin Time > 139.0 SEC (24.5-34.5)
[2023-10-08 08:02] LABS: Band Neutrophils % (manual) 26; Lymphocytes % (manual) 27 (10.0-50.0); Monocytes % (manual) 7 (0-12)
[2023-10-08 08:04] LABS: Hemoglobin 6.1 g/dL (12.2-16.2)
[2023-10-08 08:05] LABS: Anisocytosis Moderate; Hypochromia Moderate; Target Cell FEW
[2023-10-08 08:06] LABS: Platelet Estimate Decreased
[2023-10-08] MEDS: DOPamine 1600MCG/ML D5W 250 ML IV SCH (08:14)
[2023-10-08] MEDS: SODIUM BICARB 8.4% 50Meq/50ml SYR Vial IV ONE ×4 (08:52→13:15)
[2023-10-08] MEDS: CALCIUM GLUC 1,000mg/50ml-NS 50 ML IV SCH (09:04)
[2023-10-08] MEDS: CALCIUM GLUC 1,000mg/50ml-NS 50 ML IV ONE (09:04)
[2023-10-08] MEDS: phytonadione 10 MG in SODIUM CHL 0.9% 50 ML IV ONE (10:31)
[2023-10-08] MEDS: EPINEPHrine HCL INJECTION 16 MG in D5W 5% 234 ML IV SCH (13:01)
[2023-10-08] MEDS: DOPamine 3200MCG/ML 250 ML IV SCH (14:37)
== END 2023-10-09 02:48 | DRG 720 ==
LOC: ER 03:26 → EDBD 03:26 → TELE 06:42 → ER 06:42 → ICU WEST 20:08
PROVIDERS: ADMIT Nurse Practitioner; ATTEND Nurse Practitioner Acute Care
PROC: 5A1945Z Respiratory Ventilation, 24-96 Consecutive Hours (ICD-10-PCS; principal; 2023-10-06)
PROC: 0BH17EZ Insertion of Endotracheal Airway into Trachea, Via Natural or Artificial Opening (ICD-10-PCS; 2023-10-06)
PROC: 0D9670Z Drainage of Stomach with Drainage Device, Via Natural or Artificial Opening (ICD-10-PCS; 2023-10-06)
PROC: 30233K1 Transfusion of Nonautologous Frozen Plasma into Peripheral Vein, Percutaneous Approach (ICD-10-PCS; 2023-10-06)
PROC: 30233N1 Transfusion of Nonautologous Red Blood Cells into Peripheral Vein, Percutaneous Approach (ICD-10-PCS; 2023-10-06)
PROC: 02H633Z Insertion of Infusion Device into Right Atrium, Percutaneous Approach (ICD-10-PCS; 2023-10-06)
PROC: B548ZZA Ultrasonography of Superior Vena Cava, Guidance (ICD-10-PCS; 2023-10-06)
DX: A41.9 Sepsis, unspecified organism (principal); J96.01 Acute respiratory failure with hypoxia; D65 Disseminated intravascular coagulation [defibrination syndrome]; K76.7 Hepatorenal syndrome; N17.0 Acute kidney failure with tubular necrosis; J69.0 Pneumonitis due to inhalation of food and vomit; J18.9 Pneumonia, unspecified organism; K72.10 Chronic hepatic failure without coma; E87.1 Hypo-osmolality and hyponatremia; E11.649 Type 2 diabetes mellitus with hypoglycemia without coma; K76.82 Hepatic encephalopathy; K70.31 Alcoholic cirrhosis of liver with ascites; R57.8 Other shock; R65.21 Severe sepsis with septic shock; K83.09 Other cholangitis; D64.9 Anemia, unspecified; Z66 Do not resuscitate; F10.20 Alcohol dependence, uncomplicated; F31.9 Bipolar disorder, unspecified; E87.20 Acidosis, unspecified; K92.2 Gastrointestinal hemorrhage, unspecified; I10 Essential (primary) hypertension; F17.210 Nicotine dependence, cigarettes, uncomplicated; E87.70 Fluid overload, unspecified; K92.0 Hematemesis; E87.5 Hyperkalemia; Z79.899 Other long term (current) drug therapy; Z88.0 Allergy status to penicillin; W18.39XA Other fall on same level, initial encounter; Y93.89 Activity, other specified; Y92.89 Other specified places as the place of occurrence of the external cause; Y99.8 Other external cause status
CPT/HCPCS: 36415; 36600; 70450; 71045; 71250; 72125; 74176; 80048; 80053; 80320; 80329; 81001; 82140; 82570; 82805; 82962; 83605; 84300; 84484; 85007; 85014; 85018; 85025; 85027; 85610; 85730; 86850; 86900; 86901; 86920; 87040; 87070; 87077; 87081; 87186; 87205; 93005; 94003; 96361; 96374; 96375; 99291; C9113; G0378; J0171; J1265; J2185; J2250; J2543; J3430; J3490; J7060; P9047